=== PATIENT | female | born 1985 | race Caucasian/White ===

== ENCOUNTER 2017-12-19 14:07 | Emergency (ER) | payer MEDICAID ==
[2017-12-19] MEDS ORDERED: IBUPROFEN 600 MG TAB PO ONE (14:37)
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
[2017-12-19 15:13] LABS: PLATELET COUNT 288 10^3/uL (150-400)
[2017-12-20 07:43] VITALS: BP 119/59; PULSE 67; RESP 16; TEMP 98.1; O2SAT 94
== END 2017-12-20 10:04 | disposition home or self-care (01) ==
DX: F32.2 Major depressive disorder, single episode, severe without psychotic features (principal); F41.8 Other specified anxiety disorders; F19.10 Other psychoactive substance abuse, uncomplicated; F17.200 Nicotine dependence, unspecified, uncomplicated
CPT/HCPCS: 80305; G0480